=== PATIENT | female | born 1985 | race Caucasian/White ===

== ENCOUNTER 2017-02-17 16:10 | Emergency (ER) | payer SELFPAY ==
--- NOTE | 2017-02-17 17:41 | RAD ---
THREE VIEWS OF THE LEFT ANKLE: 02/17/2017 COMPARISON: None. HISTORY: Trauma, pain. FINDINGS: There is soft tissue swelling seen laterally. The talar dome and ankle mortise are intact. There i s no displaced fracture or dislocation seen. IMPRESSION: Lateral soft tissue swelling with no displaced fracture or dislocation seen. POS: [facility]
--- NOTE | 2017-02-17 17:43 | RAD ---
THREE VIEWS OF THE RIGHT ANKLE: 02/17/2017 COMPARISON: None. HISTORY: Pain. FINDINGS: There is soft tissue swelling overlying the lateral malleolus. There is no displaced fracture or ev idence of dislocation appreciated. IMPRESSION: Lateral soft tissue swelling with no displaced fracture or dislocation seen. POS: [facility]
== END 2017-02-17 17:40 | disposition home or self-care (01) ==
LOC: MADERS 16:10
DX: M19.072 Primary osteoarthritis, left ankle and foot (principal); M19.071 Primary osteoarthritis, right ankle and foot; F17.210 Nicotine dependence, cigarettes, uncomplicated

== ENCOUNTER 2017-12-09 22:20 | Emergency (ER) | payer SELFPAY ==
[2017-12-09 22:52] LABS: Bilirubin Negative (Negative); Blood, Urine Negative (Negative); Clarity Slightly Cloudy (Clear); Glucose, Urine (Dipstick) Negative (Negative); Leukocyte Small (Negative); Nitrite Negative (Negative); Protein, Urine (Dipstick) Negative (Neg-Trace); Specific Gravity, Urine 1.025 (1.005-1.030); Urobilinogen 0.2 mg/dL (0.2-1.0)
[2017-12-09 22:54] LABS: Pregnancy Test - Urine (BHCG) Negative (Negative); Pregu Control Background? CLEAR/WHITE (CLR/WHITE); Pregu Control Bar Appear? YES (CONTROL BAR); Specific Gravity 1.025 (1.002-1.036)
[2017-12-09 22:57] LABS: Bacteria/HPF 1+ HPF (None Seen); Other Microscopic Description 2+ Amorphous Sed.; RBC/HPF 0-3 HPF (0-3); Squamous Epithelial 0-3 HPF (0-3)
[2017-12-09] MEDS ORDERED: Azithromycin 250 MG TAB ONE (23:02)
[2017-12-09] MEDS ORDERED: Gentamicin 80 MG/2 ML VIAL ONE (23:02)
== END 2017-12-10 | disposition short-term general hospital (02) ==
LOC: MADERS 22:20
DX: A64 Unspecified sexually transmitted disease (principal); F17.210 Nicotine dependence, cigarettes, uncomplicated
CPT/HCPCS: 81003; 81015; 81025; 87480; 87491; 87510; 87591; 87660; 96372; J1580